=== PATIENT | female | born 1955 | race Caucasian/White ===

== ENCOUNTER 2025-09-30 01:09 | Day surgery (SDC) | payer MEDICARE, SELFPAY ==
[2025-09-15 15:21] VITALS: BMI 32.4
--- NOTE | 2025-09-15 15:36 | PC.NURSE ---
[facility] has started construction of its new state of the art ER which will open Spring 2026. With this, we anticipate parking may be a challenge for some our surgical patients and families. Parking spaces are limited but are available for all Surgical, obstetrics, and ER patients sharing this lot. If you arrive and find you are having a hard time finding a parking space, please note that we understand the challenges, please drive around the hospital and park near Hospital Entrance 1. When you enter this entrance, you can ask a volunteer to direct or take you back to the surgical waiting area to check in. We appreciate everyone?s understanding of these expected challenges while we build for your future. Report to the Outpatient Waiting Room, entrance under the green pavilion located off [facility], at time __06:00am on date __09/30/25 . Planned Procedure Time: __08:00am .? Time changes happen often and if your time is changed the preop area will call you the afternoon before. - You and your visitor will be asked to self-screen and do not enter if you have any COVID symptoms. Please call surgeon if you need to reschedule. - A mask is optional within the hospital at this time. Patients may have clear liquids (water, carbonated beverages, clear teas, apple juice) until 3 hours prior to surgery with a maximum of 20 ounces. - No food from midnight until time of surgery and no smoking, or chewing tobacco (or any form of nicotine). No chewing gum, candy or mints. (05:00am) Take only the following medications with a SIP of water on the morning of surgery: ____Buproprion, Venlafaxine, Hydroxyzine if needed DO NOT STOP ANY OF YOUR OTHER PRESCRIPTION MEDICATIONS PRIOR TO SURGERY EXCEPT THE FOLLOWING Hold all vitamins, supplements,Aspirin, NSAIDS, ALEVE, MOTRIN for [address] Feldman. Date to take last dose____09/30/25 Please no make-up, nail mongolian, hairspray, perfume, deodorant, or body powder the day of surgery.? No jewelry (including any body piercings) or valuables the day of surgery, leave them at home.? Please take a shower or bath the night before, or the morning of, surgery with an antibacterial soap.? Wear comfortable, loose fitting clothing.? - Jewelry must be removed prior to entering the operating room.? Rings and piercings that are not removed may be cut off. - The hospital will not accept responsibility for valuables.? - Please leave all valuables, including medications, at home the day of surgery. If you are going home after surgery, a licensed power screwdriver operator must drive you home.? - NO public transportation without another adult if you receive anesthesia. - We recommend that an adult stay with you for 24 hours following discharge. - We also recommend that you do not drive, make important decision, drink alcoholic beverages, or take any drugs that were not prescribed by your health care provider for at least 24 hours after your discharge time. Follow any additional instructions given to you from your surgeon. Pt to go locally to [facility] to get labs done this week. Telephone instructions given to __Patient and asked if any additional questions and then verbalized understanding. Patient advised to call surgeon office or pre surgery nurse liaison [phone] if any additional questions.
[2025-09-30] VITALS (8 sets, daily range): BP systolic 109–151; BP diastolic 65–95; PULSE 61–90; RESP 11–16; TEMP 36.2; O2SAT 95–98
--- NOTE | ~2025-09-30 | XR_ITS ---
EXAMINATION: XR retrograde pyelo w/stent RT DATE: 09/30/2025 10:18 INDICATION: Right internal ureteral stent placement TECHNIQUE: Fluoroscopic images from a right internal ureteral stent placement are submitted for review. 38 seconds of fluoroscopy time. FINDINGS: There is a right double-J internal ureteral stent projecting in expected position, with proximal Tubac loop at the level of the renal pelvis and distal loop in the pelvis within the bladder lumen. IMPRESSION: 1. Right internal ureteral stent placement. Please refer to real-time procedural findings for details. Reviewed, dictated and finalized at location O. AUTOMATION ENGINEER IMPRESSION: 1. Right internal ureteral stent placement. Please refer to real-time procedu ral findings for details.
--- OUTSIDE RECORDS SUMMARY | 2025-09-30 01:12 | XMS_ITS | Encounter Summary ---
Author Organization [facility] Address [facility] [place] [address] Care Team Providers Care Product Analyst Name Role Phone Len Jackman MD Primary Care Provider [phone] Encounter Details Date Type Department Care Team (Latest Contact Info) Description 08/08/2025 Results Follow-Up [facility] - [address] [phone] Stacie Zaldivar MD [address] [place] [address] [phone] [facility] DIAGNOSTIC PROFILE Social History Tobacco Use Types Packs/Day Years Used Date Smoking Tobacco: Never Smokeless Tobacco: Never Alcohol Use Standard Drinks/Week Comments Never 0 (1 standard drink = 0.6 oz pur e alcohol) PHQ-2 Answer Date Recorded Patient Health Questionnaire-2 Score 0 07/28/2025 Comments Unknown Sex and Gender Information Value Date Recorded Sex Assigned at Female 07/25/2025 2:15 PM CDT Legal Sex Female 5:01 PM CDT Gender Identity Not on file Sexual Orientation Not on file documented as of this encounter Plan of Treatment Not on file documented as of this encounter Visit Diagnoses Not on filedocumented in this encounter Care Teams Product Analyst Relationship Specialty Start Date End Date Len Jackman MD [address] [place] [address] PCP - General FAMILY PRACTICE 12/24/24 documented as of this encounter
--- OUTSIDE RECORDS SUMMARY | 2025-09-30 01:12 | XMS_ITS | Clinical Summary ---
Author Organization [facility] Address [address] [place] [address] Care Team Providers Care Pupil Personnel Worker Name Role Phone Len Jackman MD Primary Care Provider [phone] Allergies Active Allergy Reactions Criticality Noted Date Comments Tetracycline Rash Low 09/08/2025 Ampicillin Rash Low 09/08/2025 Phenylephrine Rash Low 09/08/2025 Shellfish Protein-Containing Drug Products Rash Low 09/08/2025 Sulfa Antibiotics Rash Low 09/08/2025 Medications buPROPion XL (WELLBUTRIN XL) 150 MG 24 hr tablet Take 1 tablet (150 mg total) by mouth daily. Active hydrOXYzine (VISTARIL) 25 MG capsule Take 1 capsule (25 mg total) by mouth 3 (three) times daily as needed for Anxiety. As need for anxiety Active Cholecalciferol (VITAMIN D) 50 MCG (1999 UT) CapIndications:Vi tamin D insufficiency Take 1 tablet by mouth daily. 5 Active venlafaxine XR (EFFEXOR-XR) 75 MG 24 hr capsule Take 1 capsule (75 mg total) by mouth daily. 5 Active Multiple Vitamins-Minerals (CENTRUM ADULT OR) Take 1 tablet by mouth daily. Active tamsulosin (FLOMAX) 0.4 MG Cap Take 1 capsule (0.4 mg total) by mouth nightly at bedtime. 30 capsule 5 Active hyoscyamine (LEVSIN/SL) 0.[address] 1 tablet (0.125 mg total) under the tongue every 4 (four) hours as needed for Cramping (ureteral stent discomfort). 30 tablet 1 Active venlafaxine (EFFEXOR) 100 MG tablet Take 1 tablet (100 mg total) by mouth daily. Now taking 150 mg capsule 025 Discontinu ed(Error) phenazopyridine (PYRIDIUM) 100 MG tablet Take 1 tablet (100 mg total) by mouth 3 (three) times daily as needed (urinary discomfort). 9 tablet 5 025 Active Problems Problem Noted Date Diagnosed Date Stage 3b chronic kidney disease 07/28/2025 Sarcoidosis 07/28/2025 Renal cyst 07/28/2025 Encounters Date Type Department Care Team Description 09/18/2025 3:21 PM HEAVY EQUIPMENT OPERATOR - 09/18/2025 11:59 PM [facility] Hospital Encounter [facility] [address] Jean Armstrong MD Discharge Disposition: Home or Self Care (Routine Discharge) 09/18/2025 Travel 09/18/2025 [facility] [place] [address] Jean Armstrong MD 09/12/2025 9:17 AM HEAVY EQUIPMENT OPERATOR Anesthesia [place] [address] Aleksandr Meyers MD Jarvis, Brittany L, RAMON 09/12/2025 9:00 AM HEAVY EQUIPMENT OPERATOR - 09/12/2025 9:46 AM HEAVY EQUIPMENT OPERATOR [facility] [place] [address] Enoc Feldman MD CYSTOSCOPY, RIGHT RETROGRADE PYELOGRAM, RIGHT URETERAL STENT PLACEMENT 09/12/2025 6:55 AM HEAVY EQUIPMENT OPERATOR - 09/12/2025 11:15 AM HEAVY EQUIPMENT OPERATOR Hospital Encounter [facility] [address] Enoc Feldman MD Discharge Disposition: Home or Self Care (Routine Discharge) 09/12/2025 Travel 09/08/2025 Travel 08/08/2025 Results Follow-Up [facility], [facility] [address] [place] [address] Stacie Zaldivar MD STONE RISK DIAGNOSTIC PROFILE 07/28/2025 1:00 PM CDT Office Visit [facility] [address] [facility], [facility] [address] [place] [address] Stacie Zaldivar MD CKD Follow-up 07/28/2025 8:48 AM CDT - 07/28/2025 11:59 PM CDT Hospital En[facility] [place] [address] Enoc Feldman MD Assioun, Bassim, MD Discharge Disposition: Home or Self Care (Routine Discharge) 07/28/2025 8:03 AM CDT - 07/28/2025 8:47 AM CDT [facility] [address] [place] [address] Enoc Feldman MD Discharge Disposition: Home or Self Care (Routine Discharge) 07/28/2025 Travel 07/25/2025 2:15 PM CDT - 07/25/2025 11:59 PM CDT Hospital En[facility] [place] [address] Stacie Zaldivar MD Discharge Disposition: Home or Self Care (Routine Discharge) 07/25/2025 Travel from Last 3 Months Social History Tobacco Use Types Packs/Day Years Used Date Smoking Tobacco: Never Smokeless Tobacco: Never Tobacco Cessation:Counseling Given: No Alcohol Use Standard Drinks/Week Comments Never 0 (1 standard drink = 0.6 oz pur e alcohol) PHQ-2 Answer Date Recorded Patient Health Questionnaire-2 Score 0 07/28/2025 Comments No Sex and Gender Information Value Date Recorded Sex Assigned at Female 07/25/2025 2:15 PM CDT Legal Sex Female 5:01 PM CDT Gender Identity Not on file Sexual Orientation Not on file Last Filed Vital Signs Vital Sign Reading Time Taken Comments Blood Pressure 123/65 09/12/2025 10:50 AM HEAVY EQUIPMENT OPERATOR Pulse 85 09/12/2025 10:50 AM HEAVY EQUIPMENT OPERATOR Temperature 36.4 C (97.5 F) 09/12/2025 10:50 AM HEAVY EQUIPMENT OPERATOR Respiratory Rate 16 09/12/2025 10:5 0 AM HEAVY EQUIPMENT OPERATOR Oxygen Saturation 97% 09/12/2025 10: 50 AM HEAVY EQUIPMENT OPERATOR Inhaled Oxygen Concentration - - Weight 80.2 kg (176 lb 12.9 oz) 09/12/2025 7:56 AM HEAVY EQUIPMENT OPERATOR Height 162.6 cm (5' 4) 09/12/2025 7:56 AM HEAVY EQUIPMENT OPERATOR Body Mass Index 30.35 09/12/2025 7:56 AM HEAVY EQUIPMENT OPERATOR Plan of Treatment Health Maintenance Due Date Last Done Comments Colorectal Cancer Screening Colonoscopy (10 Years) 1955 Hepatitis C 12/18/1971 Zoster Vaccines (1 of 2) 12/18/2003 DTaP, Tdap and Td Vaccines (2 - Td or Tdap) 09/17/2018 09/17/2008 Annual Medicare Wellness Visit 2018 Pneumococcal Vaccine: 50+ Years (2 of 2 - PCV) 06/25/2020 06/25/2019 COVID-19 Vaccine ( - season) 2025 07/30/2021, 12/14/2020, 11/20/2020 Influenza Adult (#1) 2025 06/21/2021, 07/20/2020, 07/17/2020, Additional history exists Mammogram Screening 01/30/2027 01/30/2025, 01/30/2024, 09/17/2021, Additional history exists RSV Immunization or 60+ Years (1 - 1-dose 75+ series) 2028 Dexa Scan (General) Completed 01/30/2024 PHQ-2 (Physician [place]) Completed 07/28/2025 Hepatitis A Vaccines Aged Out No long er eligible based on patient's age to complete this topic Meningococcal B Vaccine Aged Out No l onger eligible based on patient's age to complete this topic Meningococcal Vaccine Aged Out No krystina chadwick eligible based on patient's age to complete this topic RSV Immunizations Under 20 Months Aged Out No longer eligible based on patient's age to complete this topic Medical Devices Implanted Type Area Vision Impaired Teacher Device Identifier Shelf Expiration Date Model / Serial / Lot Stent Ureteral Pigtail 6fr 24cm Crv Taper Tip - [id number] Implanted:Qty: 1 on 09/12/2025 by Enoc Feldman MD at [facility] St[employer] [id number] 01/22/2028 [id number] / [id number] Procedures Procedure Name Priority Date/Time Associated Diagnosis Comments PARTIAL THROMBOPLASTIN TIME,PTT Routine 09/18/2025 3:43 PM HEAVY EQUIPMENT OPERATOR Stage 3a chronic kidney disease (CMS/HCC) PROTHROMBIN TIME, VENOUS Routine 09/18/2025 3:43 PM HEAVY EQUIPMENT OPERATOR Stage 3a chronic kidney disease (CMS/HCC) BASIC METABOLIC PANEL Routine 09/18/2025 3:43 PM HEAVY EQUIPMENT OPERATOR Stage 3a chronic kidney disease (CMS/HCC) SURG XR RETROGRD UROGRAPHY Routine 09/12/2025 9:43 AM HEAVY EQUIPMENT OPERATOR CYSTOSCOPY,INSERT URETERAL STENT 09/12/2025 9:17 AM HEAVY EQUIPMENT OPERATOR UROLITHIASIS, INCOMPLETE EMPTYING OF BLADDER N20.9, R33.9 Case Notes SCHED BY FAX 08/25/2025 LCS PHONE ASSESS CYSTOURETHROSCOPY W/URETERAL CATHETERIZATION 09/12/2025 9:17 AM HEAVY EQUIPMENT OPERATOR UROLITHIASIS, INCOMPLETE EMPTYING OF BLADDER N20.9, R33.9 Case Notes SCHED BY FAX 08/25/2025 LCS PHONE ASSESS MRI ABD WWO CON [place] 07/28/2025 9:15 AM CDT Renal cyst STONE RISK DIAGNOSTIC PROFILE Routine 07/28/2025 6:30 AM CDT Nephrolithiasis HC MICROALBUMIN URINE QN Routine 07/25/2025 2:30 PM CDT Stage 3b chronic kidney disease (CMS/HCC) HC VITAMIN D 25 OH Routine 07/25/2025 2: 25 PM CDT Vitamin D insufficiency HC URIC ACID Routine 07/25/2025 2:25 PM CDT Hyperuricemia HC BASIC METABOLIC PANEL Routine 07/25/2025 2:25 PM CDT Stage 3b chronic kidney disease (CMS/HCC) MG SCREENING W CODY YAKELIN DIGI Routine 01/30/2025 10:06 AM CDT Encounter for screening mammogram for malignant neoplasm of breast BONE DENSITY/DEXA Routine 01/30/2024 1:1 4 PM CDT Asymptomatic menopausal state from Last 3 Months or Most Recently Relevant to Health Maintenance Results * PROTIME/INR, VENOUS (09/18/2025 3:43 PM HEAVY EQUIPMENT OPERATOR) PROTIME 11.0 10.2 - 12.9 SEC 09/18/2025 4:46 PM HEAVY EQUIPMENT OPERATOR [facility] INR 0.9 09/18/2025 4:46 PM HEAVY EQUIPMENT OPERATOR [facility] Comment: Recommended INR Therapeutic Goals: 2.0-3.0 Routine Therapy 2.5-3.5 Mechanical Prosthetic Valves (High Risk) BLOOD VENOUS BLOOD SPECIMEN / Unknown 09/18/2025 3:43 PM HEAVY EQUIPMENT OPERATOR Jean Armstrong MD LABORATORY Final Result [facility] [address] [place] [address], [place] [phone] * PTT, PARTIAL THROMBOPLASTIN TIME (09/18/2025 3:43 PM HEAVY EQUIPMENT OPERATOR) PTT 30.0 25.1 - 36.5 SEC 09/18/2025 4:46 PM HEAVY EQUIPMENT OPERATOR [facility] BLOOD VENOUS BLOOD SPECIMEN / Unknown 09/18/2025 3:43 PM HEAVY EQUIPMENT OPERATOR Jean Armstrong MD LABORATORY Final Result [facility] [address] [place] [address], * (ABNORMAL) BASIC METABOLIC PANEL (09/18/2025 3:43 PM HEAVY EQUIPMENT OPERATOR) GLUCOSE 151(H) 70 - 99 MG/DL 09/18/2025 4:28 PM HEAVY EQUIPMENT OPERATOR [facility] BUN 13 7 - 18 MG/DL 09/18/2025 4:28 PM [facility] CREATININE S/P/B 1.48(H) 0.55 - 1.02 MG/DL 09/18/2025 4:28 PM HEAVY EQUIPMENT OPERATOR [facility] SODIUM S/P/B 141 136 - 145 MMOL/L 09/18/2025 4:28 PM [facility] POTASSIUM S/P/B 3.7 3.5 - 5.1 MMOL/L 09/18/2025 4:28 PM [facility] CHLORIDE S/P/B 109 97 - 115 MMOL/L 09/18/2025 4:28 PM HEAVY EQUIPMENT OPERATOR [facility] CO2 25.0 21 - 32 MMOL/L 09/18/2025 4:28 PM [facility] CALCIUM S/P/B 9.3 8.5 - 10.1 MG/DL 09/18/2025 4:28 PM [facility] ANION GAP 7.0 2 - 10 MMOL/L 09/18/2025 4:28 PM [facility] BUN CREATININE RATIO 8.8 6 - 26 09/18/2025 4:28 PM HEAVY EQUIPMENT OPERATOR [facility] GFR ESTIMATE 38(L) >90 ML/MIN/1.7 3 M2 09/18/2025 4:28 PM HEAVY EQUIPMENT OPERATOR [facility] Comment: NOTE: eGFR is not calculated for patients <18 years of age or gender unknown. This is an estimated GFR calculation using the new CKD EPI creatinine equation without race and so does not require a correction factor for race. This estimated GFR should not be used for calculating drug doses. BLOOD VENOUS BLOOD SPECIMEN / Unknown 09/18/2025 3:43 PM HEAVY EQUIPMENT OPERATOR Jean Armstrong MD LABORATORY Final Result [facility] [address] [place] [address], [place] [phone] * SURG XR RETROGRD UROGRAPHY (09/12/2025 9:43 AM HEAVY EQUIPMENT OPERATOR) Anatomical Region Laterality Modality Abdomen Radiographic Leslie ging 09/12/2025 10:1 0 AM HEAVY EQUIPMENT OPERATOR Impressions 09/12/2025 10:10 AM HEAVY EQUIPMENT OPERATOR Impression: No radiologic interpretation will be issued. The report and documentation of this exam will reside in the patient's permanent medical record and in the attending physician's procedure note. Ordered By: ENOC FELDMAN Interpreted By: Mike Person MD, 09/12/2025 10:10 AM Narrative 09/12/2025 10:10 AM HEAVY EQUIPMENT OPERATOR [facility] [address] [address] FLUOROSCOPY CONTROL ONLY Procedure Note Mike Person MD - 09/12/2025 [facility] [address] [address] FLUOROSCOPY CONTROL ONLY Impression: No radiologic interpretation will be issued. The report and documentationof this exam will reside in the patient's permanent medical record and inthe attending physician's procedure note. Ordered By: ENOC FELDMAN Interpreted By: Mkie Person MD, 09/12/2025 10:10 AM us Enoc Feldman MD IMAGES ONLY Final R esult * MRI ABD WWO CON (07/28/2025 9:15 AM CDT) Anatomical Region Laterality Modality Abdomen Magnetic Resonan ce 07/28/2025 2:19 PM CDT Impressions 07/28/2025 2:29 PM CDT IMPRESSION: 1. There is an oval 2.8 cm filling defect in the right renal pelvis suspicious for a large stone. There is minimal right hydronephrosis. 2. Benign-appearing 2.6 cm right renal cyst. 3. Bilateral renal cortical thinning. Referred By: ENOC FELDMAN Interpreted By: Augusto Ruth MD, 07/28/2025 2:19 PM Narrative 07/28/2025 2:29 PM CDT [address] [address] EXAMINATION: MRI ABD WWO CON HISTORY: Renal cyst DATE: 07/28/2025 8:28 AM COMPARISON: Ultrasound 08/20/2024 TECHNIQUE: Multisequence, multiplanar unenhanced imaging of the abdomen prior to and following the uneventful intravenous administration 17 cc dotarem. FINDINGS: Kidneys are normal size with mild to moderate bilateral renal cortical thinning suggesting chronic renal parenchymal disease. There is a cortical cyst in the lower pole the right kidney measuring 2.6 x 2.2 x 2.3 cm. This was shown to be standard septation on ultrasound, though the septation is not visualized on MRI. In either case this would be consistent with a Bosniak 1 versus Bosniak 2 cyst, not requiring follow-up per consensus criteria. No other renal mass or cystic lesions identified. There is an oval, homogeneous, T1 hypointense/T2 hypointense, nonenhancing filling defect in the right renal pelvis measuring 2.8 x 2.6 x 2.2 cm, most suggestive of a large stone. No stone is similar size is seen on last years ultrasound. Could consider CT for further evaluation. There is minimal right hydronephrosis without perinephric edema. No left hydronephrosis. Liver is negative. Spleen is negative. Pancreas is negative. Adrenal glands are negative. Gallbladder is absent. No bile duct dilatation. Procedure Note Augusto Ruth MD - 07/28/[address] [address] EXAMINATION: MRI ABD WWO CON HISTORY: Renal cyst DATE: 07/28/2025 8:28 AM COMPARISON: Ultrasound 08/20/2024 TECHNIQUE: Multisequence, multiplanar unenhanced imaging of the abdomenprior to and following the uneventful intravenous administration 17 ccdotarem. FINDINGS: Kidneys are normal size with mild to moderate bilateral renalcortical thinning suggesting chronic renal parenchymal disease. There is acortical cyst in the lower pole the right kidney measuring 2.6 x 2.2 x 2.3cm. This was shown to be standard septation on ultrasound, though theseptation is not visualized on MRI. In either case this would beconsistent with a Bosniak 1 versus Bosniak 2 cyst, not requiring follow-upper consensus criteria. No other renal mass or cystic lesionsidentified. There is an oval, homogeneous, T1 hypointense/T2 hypointense, nonenhancingfilling defect in the right renal pelvis measuring 2.8 x 2.6 x 2.2 cm,most suggestive of a large stone. No stone is similar size is seen on lastyears ultrasound. Could consider CT for further evaluation. There isminimal right hydronephrosis without perinephric edema. No lefthydronephrosis. Liver is negative. Spleen is negative. Pancreas is negative. Adrenalglands are negative. Gallbladder is absent. No bile duct dilatation. IMPRESSION: 1. There is an oval 2.8 cm filling defect in the right renal pelvissuspicious for a large stone. There is minimal right hydronephrosis. 2. Benign-appearing 2.6 cm right renal cyst. 3. Bilateral renal cortical thinning. Referred By: ENOC FELDMAN Interpreted By: Augusto Ruth MD, 07/28/2025 2:19 PM Enoc Feldman MD MRI Final R esult * (ABNORMAL) STONE RISK DIAGNOSTIC PROFILE (07/28/2025 6:30 AM CDT) U PH 6.6 5.5 - 7.0 08/05/2025 7:41 AM HEAVY EQUIPMENT OPERATOR [facility] WHITE-MILA SHAH VOLUME (U) 0.87(L) >2.00 L/day 08/05/2025 7:41 AM HEAVY EQUIPMENT OPERATOR [facility] WHITE-CHANTI LLY Comment: This test was developed and its analytical performance characteristics have been determined by [employer]. It has not been cleared or approved by the FDA. This assay has been validated pursuant to the CLIA regulations and is used for clinical purposes. CALC 24HR CA (U) 84 <250.0 mg/day 08/05/2025 7:41 AM HEAVY EQUIPMENT OPERATOR [facility] WHITE-CHANTI ADRIENNEY Comment: This test was developed and its analytical performance characteristics have been determined by [employer]. It has not been cleared or approved by the FDA. This assay has been validated pursuant to the CLIA regulations and is used for clinical purposes. URINE OXALATE (STONE RISK) 23 <45 mg/day 08/05/2025 7:41 AM HEAVY EQUIPMENT OPERATOR [facility] WHITE-CHANTI ADRIENNEY Comment: This test was developed and its analytical performance characteristics have been determined by [employer]. It has not been cleared or approved by the FDA. This assay has been validated pursuant to the CLIA regulations and is used for clinical purposes. URIC RANDOM (U) 352 <700 mg/day 08/05/2025 7:41 AM HEAVY EQUIPMENT OPERATOR [facility] WHITE-CHANTI LLY Comment: This test was developed and its analytical performance characteristics have been determined by [facility]. It has not been cleared or approved by the FDA. This assay has been validated pursuant to the CLIA regulations and is used for clinical purposes. CITRATE 249(L) >320 mg/day 08/05/2025 7:41 AM HEAVY EQUIPMENT OPERATOR [facility] WHITE-MILA LLY Comment: This test was developed and its analytical performance characteristics have been determined by [facility]. It has not been cleared or approved by the FDA. This assay has been validated pursuant to the CLIA regulations and is used for clinical purposes. NA RANDOM (U) 61 <200 mEq/day 08/05/2025 7:41 AM HEAVY EQUIPMENT OPERATOR [facility] WHITE-MILA LLY Comment: This test was developed and its analytical performance characteristics have been determined by [facility]. It has not been cleared or approved by the FDA. This assay has been validated pursuant to the CLIA regulations and is used for clinical purposes. URINE SULFATE (STONE RISK) 6 <30 mmol/day 08/05/2025 7:41 AM HEAVY EQUIPMENT OPERATOR [facility] WHITE-MILA DELEONY Comment: This test was developed and its analytical performance characteristics have been determined by [facility]. It has not been cleared or approved by the FDA. This assay has been validated pursuant to the CLIA regulations and is used for clinical purposes. PHOS RANDOM (U) 291 <1,100 mg/day 08/05/2025 7:41 AM HEAVY EQUIPMENT OPERATOR [facility] Comment: This test was developed and its analytical performance characteristics have been determined by [facility]. It has not been cleared or approved by the FDA. This assay has been validated pursuant to the CLIA regulations and is used for clinical purposes. MG RANDOM (U) 41(L) >60.0 mg/day 08/05/2025 7:41 AM HEAVY EQUIPMENT OPERATOR [facility] WHITE-MILA SHAH Comment: This test was developed and its analytical performance characteristics have been determined by [facility]. It has not been cleared or approved by the FDA. This assay has been validated pursuant to the CLIA regulations and is used for clinical purposes. URINE AMMONIUM (STONE RISK) 9(L) 14 - 62 mEq/day 08/05/2025 7:41 AM HEAVY EQUIPMENT OPERATOR [facility] WHITE-[facility]I LLY Comment: This test was developed and its analytical performance characteristics have been determined by [facility]. It has not been cleared or approved by the FDA. This assay has been validated pursuant to the CLIA regulations and is used for clinical purposes. URINE POTASSIUM (STONE RISK) 25 19 - 135 mEq/day 08/05/2025 7:41 AM HEAVY EQUIPMENT OPERATOR [facility] MICHELLE SHAH Comment: This test was developed and its analytical performance characteristics have been determined by [employer]. It has not been cleared or approved by the FDA. This assay has been validated pursuant to the CLIA regulations and is used for clinical purposes. CREATININE (URINE) GM/DL 820 600 - 1,800 mg/day 08/05/2025 7:41 AM HEAVY EQUIPMENT OPERATOR [facility] MICHELLE SHAH Comment: This test was developed and its analytical performance characteristics have been determined by [employer]. It has not been cleared or approved by the FDA. This assay has been validated pursuant to the CLIA regulations and is used for clinical purposes. CA OXALATE CRYSTALS 2.41(H) <2.00 CALC 08/05/2025 7:41 AM HEAVY EQUIPMENT OPERATOR [facility] MICHELLE SHAH URINE BRUSHITE (STONE RISK) 1.87 <2.00 CALC 08/05/2025 7:41 AM HEAVY EQUIPMENT OPERATOR [facility] MICHELLE SHAH URINE SODIUM URATE (STONE RISK) 2.40(H) <2.00 CALC 08/05/2025 7:41 AM HEAVY EQUIPMENT OPERATOR [facility] MICHELLE SHAH TRIPLE PHOSPHATE CRYSTALS 1.40 <75.00 CALC 08/05/2025 7:41 AM HEAVY EQUIPMENT OPERATOR [facility] MICHELLE SHAH URIC ACID CRYSTALS 0.50 <2.00 CALC 08/05/2025 7:41 AM HEAVY EQUIPMENT OPERATOR [facility] MICHELLE SHAH PATIENT (STONE RISK) REPORT CALC 08/05/2025 7:41 AM HEAVY EQUIPMENT OPERATOR [facility] MICHELLE SHAH Comment: Hypocitraturia Low urine volume SUPERSATURATION (STONE RISK) REPORT 08/05/2025 7:41 AM HEAVY EQUIPMENT OPERATOR [facility] MICHELLE SHAH Comment: Calcium oxalate Monosodium urate COMMENTS (STONE RISK) END OF REPORT 08/05/2025 7:41 AM HEAVY EQUIPMENT OPERATOR [facility] MICHELLE SHAH Comment: Test performed by [employer] [address] [place] [address] [employer] Specialist: Manuela Meek MD,PHD,IVELISSE Test Reported by [facility], [employer] [facility], [address] [place], [place] Naren Sanchez M.D., Ph.D., Director of Laboratories , [facility] [id number] SUSPECTED PROBLEM (STONE RISK) REPORT CALC 08/05/2025 7:41 AM HEAVY EQUIPMENT OPERATOR [employer] MICHELLE SHAH Comment: Hypocitraturic Nephrolithiasis 07/28/2025 6:30 AM CDT Stacie Zaldivar MD LABORATORY Final Result [employer] [address] [address] [place], [place] , [place] [phone] * (ABNORMAL) ALBUMIN URINE RANDOM W/CREATININE (07/25/2025 2:30 PM CDT) CREATININE (U) 272.0(H) 28 - 217 MG/DL 07/25/2025 3:18 PM CDT [facility] MICROALBUMIN (U) 31.3(H) <2.0 mg/dL 07/25/2025 3:18 PM CDT [facility] ALBUMIN/CREAT RATIO 115.1(H) <30 MG/G 07/25/2025 3:18 PM CDT [facility] URINE SPECIMEN / Unknown 07/25/2025 2:30 PM CDT Stacie Zaldivar MD URINE ORDERABLES Final Result Performing Organization Address City/[facility]/ZIP Co de Phone Number [facility] [address] [place] [address], [place] [phone] * (ABNORMAL) BASIC METABOLIC PANEL (07/25/2025 2:25 PM CDT) GLUCOSE 122(H) 70 - 99 MG/DL 07/25/2025 3:11 PM CDT [facility] BUN 18 7 - 18 MG/DL 07/25/2025 3:11 PM CDT [facility] CREATININE S/P/B 1.73(H) 0.55 - 1.02 MG/DL 07/25/2025 3:11 PM CDT [facility] SODIUM S/P/B 140 136 - 145 MMOL/L 07/25/2025 3:11 PM CDT [facility] POTASSIUM S/P/B 4.2 3.5 - 5.1 MMOL/L 07/25/2025 3:11 PM CDT [facility] CHLORIDE S/P/B 108 97 - 115 MMOL/L 07/25/2025 3:11 PM CDT [facility] CO2 29.3 21 - 32 MMOL/L 07/25/2025 3:11 PM CDT [facility] CALCIUM S/P/B 9.9 8.5 - 10.1 MG/DL 07/25/2025 3:11 PM CDT [facility] ANION GAP 2.7 2 - 10 MMOL/L 07/25/2025 3:11 PM CDT [facility] BUN CREATININE RATIO 10.4 6 - 26 07/25/2025 3:11 PM CDT [facility] GFR ESTIMATE 31(L) >90 ML/MIN/1.7 3 M2 07/25/2025 3:11 PM CDT [facility] Comment: NOTE: eGFR is not calculated for patients <18 years of age or gender unknown. This is an estimated GFR calculation using the new CKD EPI creatinine equation without race and so does not require a correction factor for race. This estimated GFR should not be used for calculating drug doses. 07/25/2025 2:25 PM CDT us Stacie Zaldivar MD LABORATORY Final Result [facility] [address] [place] [address], [place] [phone] * VITAMIN D, 25 OH (07/25/2025 2:25 PM CDT) VITAMIN D 25 HYDROXY S/P/B 35 30 - 100 NG/ML 07/25/2025 3:19 PM CDT [facility] Comment: INTERPRETATION DEFICIENT <20 INSUFFICIENT 20-29 SUFFICIENT 30-100 07/25/2025 2:25 PM CDT us Stacie Zaldivar MD LABORATORY Final Result [facility] [address] [place] [address], [place] [phone] * (ABNORMAL) URIC ACID BLOOD (07/25/2025 2:25 PM CDT) URIC ACID 6.6(H) 2.6 - 6.0 MG/DL 07/25/2025 3:11 PM CDT [facility] 07/25/2025 2:25 PM CDT us Stacie Zaldivar MD LABORATORY Final Result [facility] [address] [place] [address], [place] [phone] * MG SCREENING W CODY YAKELIN DIGI (01/30/2025 10:06 AM CDT) Anatomical Region Laterality Modality Breast Bilateral Mammography 01/30/2025 1:37 PM CDT Impressions 01/30/2025 1:39 PM CDT IMPRESSION: No suspicious mammographic findings. Recommendation: 1. Routine Screening, Bilateral Assessment: ACR BI-RADS 2 - BENIGN FINDING(S) Ordered By: LEN JACKMAN Interpreted By: West Morrison MD, 01/30/2025 1:37 PM Narrative 01/30/2025 1:39 PM CDT [facility] [address] [place] [address] Examination: Screening bilateral mammogram Exam Date: 01/30/2025 9:53 AM Clinical history: Routine screening. Comparison: 01/30/2024, 09/17/2021 Technique: Digital screening mammography of both breasts was performed. Breast tomosynthesis acquisitions were obtained and reviewed. This study was read with the assistance of a computer-aided detection system. Tissue density: There are scattered areas of fibroglandular density. Findings: No suspicious masses, malignant appearing calcifications, skin thickening or other abnormalities are present. Benign calcifications are noted. No significant change from the prior exam. us Len Jackman MD MAMMO Final Result * BONE DENSITY/DEXA (01/30/2024 1:14 PM CDT) Anatomical Region Laterality Modality Bone Mammography 01/30/2024 4:50 PM CDT Impressions 01/30/2024 4:53 PM CDT =====IMPRESSION:===== The patient bone density Normal according to the World Health Organization (WHO) criteria 10 year fracture risk: Major osteoporotic fracture: 8.0 % Hip fracture: 0.7 % Ordered By: DIONY INGRAM Interpreted By: Jean Her MD, 01/30/2024 4:50 PM Narrative 01/30/2024 4:53 PM CDT EXAMINATION: Bone Density Axial EXAM DATE/TIME: 01/30/2024 1:13 PM REASON FOR EXAM: post menopausal status COMPARISON: 02/02/2001 FINDINGS: DEXA bone densitometry The bone mineral density (BMD) was determined by dual-energy x-ray absorptiometry, the results are as follows: AP Lumbar Spine L1 through L4 BMD Patient (GM/SQCM): 1.161 T-Score (Standard deviations from young adult peak bone density): 1.0 and a Z- Score of 3.2. . It should be noted that scoliosis and osteoarthritis may falsely increase bone mineral density measured in the lumbar spine. . It should be noted that there has been interval decrease from prior exam. Right femoral neck: BMD Patient (GM/SQCM): 0.746 T-Score (Standard deviations from young adult peak bone density): -0.9 and a Z- Score of 0.9. . Mean Total proximal femur: BMD Patient (GM/SQCM): 0.919 T-Score (Standard deviations from young adult peak bone density): -0.2 and a Z- Score of 1.3. It should be noted that there has been interval decrease from prior exam. Procedure Note Jean Her MD - 01/30/2024 EXAMINATION: Bone Density Axial EXAM DATE/TIME: 01/30/2024 1:13 PM REASON FOR EXAM: post menopausal status COMPARISON: 02/02/2001 FINDINGS: DEXA bone densitometry The bone mineral density (BMD) was determined bydual-energy x-ray absorptiometry, the results are as follows: AP Lumbar Spine L1 through L4 BMD Patient (GM/SQCM): 1.161 T-Score (Standard deviations from young adult peak bonedensity): 1.0 and a Z- Score of 3.2. . It should be noted that scoliosisand osteoarthritis may falsely increase bone mineral density measured inthe lumbar spine. . It should be noted that there has been intervaldecrease from prior exam. Right femoral neck: BMD Patient (GM/SQCM): 0.746 T-Score (Standard deviations from young adult peak bonedensity): -0.9 and a Z- Score of 0.9. . Mean Total proximal femur: BMD Patient (GM/SQCM): 0.919 T-Score (Standard deviations from young adult peak bonedensity): -0.2 and a Z- Score of 1.3. It should be noted that there hasbeen interval decrease from prior exam. =====IMPRESSION:===== The patient bone density Normal according to the World Health Organization (WHO) criteria 10 year fracture risk: Major osteoporotic fracture: 8.0 % Hip fracture: 0.7 % Ordered By: DIONY INGRAM Interpreted By: Jean Her MD, 01/30/2024 4:50 PM us Diony Ingram SORTER/ASSAY TECH DEXA Final R esult from Last 3 Months or Most Recently Relevant to Health Maintenance Insurance [facility] MEDICARE Care Teams Pupil Personnel Worker Relationship Specialty Start Date End Date Len Jackman MD [address] [place] [address] PCP - General FAMILY PRACTICE 12/24/24
[2025-09-30] MEDS: LACTATED RINGERS 1,000 ML 30 ML IV CONT (07:00)
--- NOTE | 2025-09-30 07:10 | WPDHPUPDATE1 ---
History and Physical Update Update Date/Time: 09/30/25 07:10 History and Physical has been reviewed, including an updated exam of the patient. There are NO changes in the patient's condition. Risks, benefits, and alternatives have been discussed and questions answered. Patient agrees to proceed with procedure.
--- NOTE | 2025-09-30 07:10 | PM.HPGS ---
History of Present Illness History of Present Illness Consent: Risks, benefits, and alternatives have been discussed and questions answered. Patient agrees to proceed with procedure. Chief complaint: nephrolithiasis Narrative: Edie Gill is a 69 year old female with PMHx of CKD, urolithiasis who presents today for endoscopic management of large stone burden in her right kidney. She was found on recent imaging to have a large 3 cm stone in her right kidney and underwent placement of a right ureteral stent on 09/12/2025. She denies any changes past her baseline and is ready for the procedure today. Review of Systems Review of Systems: Constitutional: No fevers or chills Eyes: No changes in vision HENT: No hearing loss Cardiovascular: No chest pain or palpitations Respiratory: No shortness of breath, cough, wheezing GI: No abdominal pain, nausea, or vomiting : No dysuria or difficulty urinating Heme: No easy bruising or bleeding Skin: No rash or itching MSK: No myalgias or joint pain Psych: No hallucinations Neuro: No lateralized numbness or tingling PMFSH Past Medical History Medical History (Updated 09/30/25 @ 07:12 by Jose Cruz Feldman MD) CKD (chronic kidney disease) Social History Social History Smoking status: Never smoker Second hand tobacco smoke exposure: No Alcohol intake: never Substance use: never Living arrangements: with family Additional living arrangements comments: Spiritual care concerns: No Meds Home Medications and Allergies Home Medications ?Medication ?Instructions ?Recorded ?Confirmed ?Type bupropion HCl 150 mg 24 hr tablet, 150 mg PO DAILY 09/15/25 09/15/25 History extended release cholecalciferol (vitamin D3) 50 50 mcg PO DAILY 09/15/25 09/15/25 History mcg (2,000 unit) capsule (Vitamin D3) hydroxyzine HCl 25 mg tablet 25 mg PO TID PRN anxiety 09/15/25 09/15/25 History multivitamin (Daily Multi-Vitamin 1 tablet PO DAILY 09/15/25 09/15/25 History tablet) venlafaxine 75 mg capsule,extended 75 mg PO DAILY 09/15/25 09/15/25 History release 24 hr Allergies Allergy/AdvReac Type Severity Reaction Status Date / Time ampicillin Allergy Intermediate rash Verified 09/30/25 07:12 phenylephrine Allergy Intermediate rash Verified 09/30/25 07:12 shellfish derived Allergy Intermediate rash Verified 09/30/25 07:12 trichlormethiazide (From Allergy Intermediate rash Verified 09/30/25 07:12 Metahydrin) Sulfa (Sulfonamide AdvReac Intermediate rash Verified 09/30/25 07:12 Antibiotics) tetracycline (From AdvReac Intermediate rash Verified 09/30/25 07:12 Achromycin) seafood AdvReac Intermediate rash Uncoded 09/15/25 15:14 Exam Narrative: General: Alert, no acute distress Head: Normocephalic, atraumatic Eyes: Extraocular movements intact Neck: No JVD, trachea midline Respiratory: Symmetric chest rise, nonlabored breathing on room air CV: Normal rate, adequate peripheral perfusion Abdomen: Soft, nontender, nondistended Skin: Warm/dry Extremities: No peripheral edema, no cyanosis Neuro: No focal deficits Psych: Answers questions appropriately, appropriate mood Assessment and Plan Assessment and plan (1) Kidney stone: Code(s): N20.0 - Calculus of kidney Status: Acute Plan 69yF with large 3cm right renal stone s/p placement of right ureteral stent on 09/12/2025 - To OR for cystoscopy with right ureteroscopy, laser lithotripsy with CVAC, and right ureteral stent exchange - The risks, benefits, alternatives were reviewed with the patient. I specifically discussed that she may require more surgery for her stones beyond today if I am unable to adequately treat her large stone burden today. The patient expressed understanding and agreement to proceed. - Anticipate discharge home thereafter
--- NOTE | 2025-09-30 07:49 | WPDANESEPPF ---
Anes - Initial Pre Proc Eval Procedure: Operation Date: 09/30/25 08:00 Proposed Procedures p Cystoscopy, Right Retrograde Pyelogram, Right Ureteroscopy with CVAC, Right Ureteral Stent Exchange - Jose Cruz Feldman MD Date/Time: 09/30/25 07:49 Surgeon: Jose Cruz Feldman MD Pre Op Diagnosis: nephrolithiasis Patient Data Age: 69 Gender: F Height: 1.6 m Weight: 81.1 kg Last Vital Signs Temp 36.2 C L 09/30/25 07:00 Pulse 61 09/30/25 07:00 Resp 16 09/30/25 07:00 BP 142/79 H 09/30/25 07:00 Pulse Ox 98 09/30/25 07:00 O2 Del Method Room Air 09/30/25 07:00 Allergies Allergy/AdvReac Type Severity Reaction Status Date / Time ampicillin Allergy Intermediate rash Verified 09/30/25 07:12 phenylephrine Allergy Intermediate rash Verified 09/30/25 07:12 shellfish derived Allergy Intermediate rash Verified 09/30/25 07:12 trichlormethiazide (From Allergy Intermediate rash Verified 09/30/25 07:12 Metahydrin) Sulfa (Sulfonamide AdvReac Intermediate rash Verified 09/30/25 07:12 Antibiotics) tetracycline (From AdvReac Intermediate rash Verified 09/30/25 07:12 Achromycin) seafood AdvReac Intermediate rash Uncoded 09/15/25 15:14 Home Medications ?Medication ?Instructions ?Recorded ?Confirmed ?Type bupropion HCl 150 mg 24 hr tablet, 150 mg PO DAILY 09/15/25 09/15/25 History extended release cholecalciferol (vitamin D3) 50 50 mcg PO DAILY 09/15/25 09/30/25 History mcg (2,000 unit) capsule (Vitamin D3) hydroxyzine HCl 25 mg tablet 25 mg PO TID PRN anxiety 09/15/25 09/15/25 History multivitamin (Daily Multi-Vitamin 1 tablet PO DAILY 09/15/25 09/30/25 History tablet) venlafaxine 75 mg capsule,extended 75 mg PO DAILY 09/15/25 09/15/25 History release 24 hr Patient hx anesthesia problems: none Family hx anesthesia problems: none Results Review: All pre-operative results and documents have been reviewed as part of the pre-operative evaluation. [facility] Past Medical History Medical History (Updated 09/30/25 @ 07:12 by Jose Cruz Feldman MD) CKD (chronic kidney disease) Social History Social History Smoking status: Never smoker Second hand tobacco smoke exposure: No Alcohol intake: never Substance use: never Living arrangements: with family Additional living arrangements comments: Spiritual care concerns: No Anes - Eval Final PreProcedure Day of Procedure 09/30/25 07:49 Patient weight: obese Heart: regular rate and rhythm Lungs: clear to auscultation Airway: Mallampati scale class III Neurological: alert and oriented Last oral intake: >/= 8 hours ASA classification: III Emergent: no Anesthetic plan: proceed Anesthesia type and monitoring: general LMA and standard monitoring Results Review: All pre-operative results and documents have been reviewed as part of the pre-operative evaluation. Informed Consent: The patient's anesthetic plan and its attendant risks and benefits were discussed with the patient/family/POA. Questions were solicited and answers provided to the satisfaction of the patient/family/POA.
[2025-09-30] MEDS: ceFAZolin 2 GM in SODIUM CHLORIDE 0.9% IV 50 ML 100 ML IVPB (08:09)
--- NOTE | 2025-09-30 10:07 | S_PTH ---
PATIENT: Edie Gill LOC: [facility] U#:[id number] AGE/SX: 69/F ROOM: RE09/30/[address]: Jose Cruz Feldman MD : 1955 BED: DIS: 09/30/2025 SPEC #: [id number] RECD: 09/30/25 10:31 STATUS: MADDI REQ #: [id number] MOHIT: 09/30/25 10:[address]: Jose Cruz Feldman DEPT: [facility] Surgical RECD BY: Carson Noble ENTERED: 09/30/25 10:31 SP TYPE: Surgical OTHR DR: Len Jackman, Tissues: A - Stone Procedures: Gross Exam Level 1 Crystalline Analysis
[2025-09-30] MEDS: fentaNYL CITRATE INJ (*CRX) 100 MCG/2 ML VIAL 25 MCG IV PUSH ×4 (10:46→11:01)
[2025-09-30] MEDS: ONDANSETRON INJ 4 MG/2 ML VIAL IV PUSH (11:39)
--- NOTE | 2025-09-30 14:28 | W.PM.PROC2 ---
Procedure Note - Detailed Date of Procedure 09/30/25 Pre-op Diagnosis nephrolithiasis Post-op Diagnosis Same Procedure Performed 1. Cystoscopy 2. Right retrograde pyelogram with intraoperative interpretation 3. Right ureteroscopy, laser lithotripsy, with irrigation/aspiration of stone fragments 4. Right ureteral stent exchange Surgeon Jose Cruz Feldman MD Anesthesia General Findings 1. Modifier 22 -- please note that this case required significantly greater effort, increased intensity, time, technical difficulty of procedure, and physical and mental effort required, than is usually needed for this procedure secondary to the significant stone burden in her right kidney measuring well over 3 cm Cystourethroscopy revealed an appropriately positioned right ureteral stent with otherwise orthotopic ureteral orifices bilaterally. There are no suspicious lesions, tumors, active bleeding, or stones in the lower urinary tract. 2. Spot film over the right kidney revealed a massive radiopaque stone consistent with her prior cross-sectional imaging. 3. Right renal endoscopy revealed a massive spherical shape stone about 3 to 4 cm in diameter. There were no other significant size stones appreciated. 4. After over 2 hours of laser lithotripsy with CVAC aspiration of fragments, approximately half of the stone had been treated. This was after using a 200 micron Jayesh laser as well as 2 separate 550 micron Jayesh lasers. At this point I elected to discontinue the procedure and exchange her right ureteral stent and return on a separate day for the remainder of her stone treatment. 5. Right retrograde pyelogram using a 50 50 mixture of contrast and saline showed a large residual filling defect in the right renal pelvis but no hydronephrosis or contrast extravasation. 5. Successful right ureteral stent exchange without strings attached. Description of Procedure Procedures Performed: 1. Cystoscopy 2. Right retrograde pyelogram with intraoperative interpretation 3. Right ureteroscopy, laser lithotripsy, with irrigation/aspiration of stone fragments 4. Right ureteral stent exchange Findings: 1. All upper tract stones dusted 2. Stent placed in appropriate position Details of procedure: The patient was brought back to the operating room. They were prepped, draped, and padded per protocol. Pre-operative IV antibiotics were confirmed to have been administered. A formal time out was performed to confirm the correct patient, site, laterality, and procedure and all were in agreement to proceed. The bladder was entered transurethrally with the rigid cystoscope. Pancystoscopy was performed and no suspicious intravesical tumors, lesions, stones, active bleeding were noted. The bladder itself was normal. A sensor wire was advanced up alongside the existing right ureteral stent and into the right kidney. I then removed the cystoscope and secured the Sensor wire to the drapes of the hemostat. The cystoscope was reintroduced transurethrally into the bladder and a second safety Glidewire was advanced up the right ureter and into the kidney. The cystoscope was removed and a ureteral access sheath was advanced over the Glidewire under direct fluoroscopic guidance to the level of the proximal ureter. A single use CVAC flexible ureteroscope was advanced through the ureteral access sheath and into the kidney. The full collecting system was then surveyed with the single use CVAC ureteroscope. I immediately encountered a massive spherical shaped had 3-4 cm stone. I advanced a 200 micron Jayesh laser and began performing laser lithotripsy. The stone was incredibly dense. After several minutes of using the 200 micron Jayesh laser I called for a 550 micron Jayesh laser and continued to perform laser lithotripsy which was more effective with the stronger laser fiber. After about an hour of using this laser fiber the and got worn out. I called for a laser stripper but the 550 micron laser would not fit through the stripper. I thus called for another 550 micron laser to be open and continued laser lithotripsy for approximately another hour. At this point, after over 2 hours of laser lithotripsy, approximately 50% of the stone had been treated. Exhaustive steerable vacuum aspiration was performed in each calyx and the renal pelvis using continuous fluid irrigation, increased fluid flow to mobilize stones, and intermittent vacuum aspiration. Fluid outflow was monitored to confirm effluent contained stone fragments. Upon completion of vacuum aspiration of the primary stone locations, the full collecting system was navigated and irrigation/vacuum continued to collect fragments moving through the collecting system. Next, a right retrograde pyelogram was performed through the CVAC scope positioned in the renal pelvis in order to delineate the collecting system in anticipation of stent placement; please see above for intraoperative retrograde pyelogram findings. The CVAC scope was then backed down the ureter while simultaneously removing the access sheath and the ureter was then inspected on the way out and there was no significant trauma noted. With the access sheath and CVAC ureteroscope removed, the cystoscope was then backloaded onto the Sensor wire and advanced transurethrally into the bladder with attention drawn to the right ureteral orifice. Over top of the wire, a 6 Georgian x 24 cm JJ stent was then advanced over the wire and the pusher was used to deploy the stent in place. A good proximal curl was noted in the right kidney under fluoroscopy and a good distal curl was noted in the bladder under both direct cystoscopic and fluoroscopic vision. The patient's bladder was then drained and the cystoscope was removed, essentially concluding the case. At the conclusion of the case all sponge, instrument, and sharp counts were correct x2. The patient was awoken from anesthesia and taken to the recovery unit in stable condition. The patient tolerated the procedure well and there were no immediate complications noted. Disposition: The patient will be monitored in the PACU discharge home once clearing PACU protocol. She will follow-up in the near future for a second-look ureteroscopy with CVAC and laser lithotripsy with irrigation/aspiration of stone fragments. The patient's was provided with an update following the surgery all questions were answered to his satisfaction at the conclusion of our discussion.
== END 2025-09-30 12:38 | disposition home or self-care (01) ==
PROVIDERS: PCP Family Medicine; Visit Provider Urology
PROC: (CPT 52352; principal; 2025-09-30 08:00)
DX: N20.0 Calculus of kidney (principal); E66.9 Obesity, unspecified; Z68.31 Body mass index [BMI] 31.0-31.9, adult
CPT/HCPCS: 52356; 36415; 74420; 82365; 88300; J0690; A4248; C1747; C1758; C1769; C2617; J2405; J3010; J7120; Q9966